=== PATIENT | male | born 1960 | race Caucasian/White ===

== ENCOUNTER → 2024-11-18 09:38 | Outpatient (REF) | payer MEDICARE, OTHER, SELFPAY | LOC: RCS 09:38 | PROVIDERS: ATTENDING PHYSICIAN Internal Medicine Interventional Cardiology; FAMILY PHYSICIAN Student in an Organized Health Care Education/Training Program | DX: I25.2 Old myocardial infarction (principal) | CPT/HCPCS: 93306 ==

== ENCOUNTER 2025-01-11 19:03 | Emergency (ER) | payer MEDICARE, OTHER, SELFPAY ==
[2025-01-11 19:04] VITALS: BP 154/92
[2025-01-11 20:09] LABS: Hematocrit 40.7 % (39.0-52.0); Hemoglobin 13.1 g/dL (13.0-18.0); Mean Corp Hgb Conc. 32.2 g/dL (33.0-37.0); Mean Corpuscular Volume 83.2 fL (80.0-94.0); Nucleated Red Blood Cells % 0 % (-); Platelet Count 208 10^3/uL (130-400); Red Cell Dist. Width 14.4 % (11.5-14.5)
[2025-01-11 20:35] LABS: ALT (SGPT) 26 U/L (0-50); AST (SGOT) 25 U/L (17-59); Albumin 4.6 g/dl (3.5-5.0); Alkaline Phosphatase 53 U/L (38-126); Blood Urea Nitrogen 23 mg/dl (9-20); Calcium 9.6 mg/dl (8.4-10.2); Carbon Dioxide 26 mmol/L (22-30); Chloride 107 mmol/L (98-107); Glucose 139 mg/dl (70-99); Potassium 4.7 mmol/L (3.5-5.1); Sodium 142 mmol/L (135-145); Total Protein 7.7 g/dl (6.3-8.2); eGFR > 60.00
[2025-01-11 20:46] LABS: Troponin I < 0.012 ng/ml
[2025-01-11 21:07] VITALS: BMI 31.7
[2025-01-11 21:09] VITALS: BP 144/85
[2025-01-11 23:19] VITALS: BP 142/85
[2025-01-11 23:30] VITALS: BP 139/89
--- NOTE | 2025-01-12 01:05 | ED.GENMED ---
History of Present Illness
General
Chief Complaint: Chest Pain
Source: patient and spouse
Time Seen by Provider: 01/11/25 21:15
Nursing documentation reviewed up to this point in time: agreed with
History of Present Illness
History of Present Illness:
Note:
CHIEF COMPLAINT(S)
Back pain with associated chest discomfort.
HISTORY OF PRESENT ILLNESS
The patient is a 64-year-old male with a history of myocardial infarction in 2008. The patient reports that while exercising last Sunday, he experienced a sudden sensation in his back dikc to 'breaking a guitar spring,' which he attributes to
muscular strain. The discomfort extended to his chest area, described as pressure due to muscle stress. Despite initial improvement over the week, the patient decided to seek medical attention today due to persistent unease and inability to find
comfort in his back. Today, the patient experienced an unfamiliar high blood pressure reading of 179/90, which prompted concern given he had never recorded such levels before. There was no associated shortness of breath, and the patient denies
current chest pain, describing discomfort instead below the shoulder blade, affecting his ribs. The patient relates the discomfort to muscle tension as per previous advice from his polisher numeral, Dr. Gibson.
SOCIAL DETERMINANTS AFFECTING HEALTH
The patient communicated a high level of concern due to his recent high blood pressure readings, which could reflect stress or anxiety impacting his health.
REVIEW OF SYSTEMS
- Musculoskeletal: Back pain that extends to the shoulder blade and ribs.
- Cardiovascular: History of myocardial infarction, current concern for blood pressure.
- Respiratory: No shortness of breath reported.
PHYSICAL EXAM
General: Alert, no acute distress.
Skin: Warm, dry.
Head: Normocephalic, atraumatic.
Neck: Supple, trachea midline.
Eyes, ears, nose, mouth, and throat: Oral mucosa moist.
Cardiovascular: Normal peripheral perfusion, No edema.
Respiratory: Respirations are non-labored.
Gastrointestinal: Abdomen nondistended
Back: Normal range of motion, Normal alignment.
Musculoskeletal: Normal ROM, normal strength.
Neurological: Alert and oriented to person, place, time, and situation, No focal neurological deficit observed.
Psychiatric: Cooperative, appropriate mood & affect.
PROBLEM LIST
Acute:
- Musculoskeletal back pain with extension to the chest.
- Elevated blood pressure reading after physical activity.
CHRONIC MEDICAL CONDITIONS SIGNIFICANTLY AFFECTING CARE
- History of myocardial infarction in 2008.
PLAN
- The plan includes performing a D-dimer test to assess for potential thromboembolic events (blood clot).
DIFFERENTIAL DIAGNOSIS
The Differential Diagnosis includes, in no particular order and is not limited to:
1. Musculoskeletal strain or sprain
2. Angina pectoris
3. Myocardial ischemia
4. Aortic dissection
5. Pulmonary embolism
6. Costochondritis
7. Gastroesophageal reflux disease (GERD)
8. Pericarditis
9. Pleural effusion
10. Pleuritis
EKG
My independent EKG interpretation is:
- Time of EKG: Not provided
- Rhythm: Not explicitly mentioned, but a normal rate may suggest a sinus rhythm
- Heart Rate: 70 beats per minute
- IA Interval: 214 ms, indicating a first-degree AV block
- QRS Duration: Not provided
- QT Interval: Not provided
- Platina: Not provided
- ST Segment Changes: Changes in lead aVF
- T Wave Inversions: Not explicitly mentioned
- Arrhythmias: Not explicitly mentioned
- Notable Finding: STT changes in aVF previously documented, unchanged since 2013
CARE-UPDATE
01/12/25 - 01:06
CT scan results indicate no evidence of pulmonary embolism.
Disposition:
SUMMARY OF ENCOUNTER
The patient, a 64-year-old male, presented to the emergency department with chest discomfort extending over the past week. Despite being attributed to muscle strain initially, a comprehensive evaluation was undertaken given the patients history of
myocardial infarction. A CT scan of the chest was performed and showed no evidence of pulmonary embolism. Cardiac enzymes were negative, ruling out acute coronary syndrome, and an EKG demonstrated unchanged results from previous evaluations.
Considering these findings, the patient was determined to be stable for discharge.
DISPOSITION
Discharge.
PLAN
The patient is advised to follow up with Dr. Gibson, his polisher numeral, for ongoing management of his cardiovascular health.
INDEPENDENT REVIEW OF LABS AND INTERPRETATION OF TESTS
- My independent review of the CT scan of the chest indicates no evidence of pulmonary embolism.
- My independent review of cardiac enzymes is negative, showing no indication of an acute coronary event.
- My independent EKG interpretation is unchanged from previous results, particularly with no new ischemic changes.
MEDICAL DECISION MAKING
- Number and Complexity of Problems Addressed: Chronic conditions affecting care include the patients history of myocardial infarction. Differential diagnosis considered: musculoskeletal strain or sprain, angina pectoris, myocardial ischemia, aortic
dissection, pulmonary embolism, costochondritis, gastroesophageal reflux disease (GERD), pericarditis, pleural effusion, pleuritis.
- Data:
Category 1:
- My independent interpretation of the CT scan and EKG as described.
- Review of cardiac enzymes, confirming negative results.
Category 3:
- Discussion of management was implied with the patients assurance to follow up with his polisher numeral, Dr. Gibson.
- Risk: Consideration of Admission/Observation: Escalation of care including admission/observation was considered given the complexity and risk of the patients presenting complaint, exam findings, and their underlying comorbidities. However,
ultimately, I feel the patient is safe for outpatient management with close follow-up. Reasoning: Work-up reassuring, does not reveal any acute life-threatening processes, patients symptoms well controlled upon reevaluation, reexamination is
reassuring, vitals are stable, patient agreeable with discharge, reliable for follow-up.
DIAGNOSIS
- Musculoskeletal chest pain, ICD-10 Code: M54.6
- Essential hypertension, ICD-10 Code: I10
- History of myocardial infarction, ICD-10 Code: I25.2
Past History
Past History
ED Past Medical History: CAD, HTN, Hypercholesterolemia and Other (migraine, anxiety, depression)
ED Past Surgical History: Cardiac (Cardiac stent) and Orthopedic (right hip replacement)
Social History
Tobacco: Non-smoker
Alcohol: Occasional
Drug: None
Personal:
Living: with family
Employment: Employed
Phy Exam
Physical Exam
Physical Exam:
.
Scores
Heart Score for Chest Pain Patients
STEMI patient?: No
History: Slightly or Non-Suspicious
ECG: Normal
Age: >/= 65 years
Risk Factors: 1 or 2 Risk Factors
Troponin: </= Normal Limit
Heart Score for Chest Pain Patients: 3
Heart Score Risk: 2.5% MACE over next 6 weeks
Course
Orders/Labs/Results
Orders:
Orders
01/11/25 19:04
Electrocardiogram (*1) Urgent
Reason for Study: Other
Other Reason for Exam: Respiratory Distress
Cardiac Monitoring- Treatment ONCE
EKG- Treatment ONCE
IV Insert/Care/Rem.- Treatment PRN
CR Chest - 2 Views Urgent
Comment:
Reason For Exam: respiratory distress
O2 Therapy [RESP] Urgent
Titrate/Wean O2 to maintain O2 sat greater than (%): 93
Special Instructions: TO MAINTAIN CONTINUOUS O2 SATS >/= 93%
Pulse Ox/cont/shift [RESP] Urgent
Quantity: 1
Special Instructions: continuous pulse ox
01/11/25 19:57
Complete Blood Count/With Diff Urgent
Comprehensive Metabolic Panel Urgent
NT-proBNP Urgent
Troponin I Urgent
01/11/25 23:22
CT Chest PE Study Urgent
Comment:
Reason For Exam: cp, left chest pain
01/12/25 00:56
Electrocardiogram (*1) Urgent
Reason for Study: Chest Pain
EKG- Treatment ONCE
01/12/25 01:11
Troponin I Urgent
Abnormal Lab Results
01/11/25
19:57
WBC 11.7 H 10^3/uL
(4.8-10.8)
MCH 26.8 L pg
(27.0-31.0)
MCHC 32.2 L g/dL
(33.0-37.0)
Abs Immat Gran (auto) 0.1 H 10^3/uL
(0-0.05)
Absolute Neuts (auto) 6.9 H 10^3/uL
(1.4-6.5)
Absolute Monos (auto) 1.1 H 10^3/uL
(0.1-0.6)
Immature Gran % 0.8 H %
(0-0.5)
Monocytes % 9.4 H %
(1.7-9.3)
BUN 23 H mg/dl
(9-20)
Glucose 139 H mg/dl
(70-99)
01/11/25 19:57
01/11/25 19:57
Vital Signs
Initial and Last Documented VS:
Initial Vital Signs
Temp Pulse Resp BP Pulse Ox
98.2 F 81 19 154/92 97
01/11/25 19:04 01/11/25 19:04 01/11/25 19:04 01/11/25 19:04 01/11/25 19:04
Last Documented Vital Signs
Temp Pulse Resp BP Pulse Ox
98.2 F 71 18 138/88 94
01/11/25 19:04 01/12/25 01:15 01/12/25 01:15 01/12/25 01:13 01/12/25 01:15
*Radiology
Radiology exam reviewed: radiology read reviewed
*Pulse Oximetry
SaO2: 95
Patient hypoxic: no
*Critical Care Note
Total Time (30-74mins, 75-104mins- exclusive of procedures): Not Applicable
Update Note
Update Note:
NAME: DAVID GARCIA
DATE OF EXAM: 01/11/2025
Patient No: [id number]
Physician: FAVIO
Date of : 1960
Past Medical History (entered by Technologist):
Reason For Exam (entered by Technologist):
Other Notes (entered by Technologist): Pt here for back pain on and off for a week, had an echo recently that was normal.
Prior sent
Additional Information (per [facility] Radiologist): Back pain on again off again for a week
CTA chest PE
Comparison: 10/06/2013
IMPRESSION:
sufficient contrast opacification of the pulmonary arteries
No evidence for pulmonary embolus
No appreciable acute thoracic aortic pathology on this non-ECG gated exam
Coronary artery calcifications
Normal size heart
Pericardium appears within normal limits
Lungs clear. No evidence for pneumonia or pulmonary edema
No pleural effusion or pneumothorax
Small sliding hiatal hernia
Case finalized on 01/12/25 00:08 EST
Ramy Hinson M.D.
This report has been electronically signed and verified by the Radiologist whose name is printed abov
ED Attending Note
-
Portions of this chart may have been created with voice recognition software.� Occasional wrong word or��sound alike� substitutions may have occurred due to the inherent limitations of voice recognition software.
Discharge Plan
Departure
Patient Disposition: Home (Routine Discharge)
Date of Disposition: 01/12/25
Time of Disposition: 01:53
Patient with high blood pressure during this ER visit?: Yes
Condition: Good
Discharge Problem:
Chest pain
Instructions: Chest Pain DCA Follow Up, BLOOD PRESSURE
Prescriptions:
No Action
carvedilol 12.5 MG tablet
12.5 mg PO BID
lisinopril 20 MG tablet
20 mg PO HS
rosuvastatin [Crestor] 40 MG tablet
40 mg PO HS Qty: 0
melatonin 2.5 MG tablet,chewable
5 mg PO HSPRN PRN (Reason: insomnia) Qty: 0
acetaminophen [Tylenol Extra Strength] 500 MG tablet
1,000 mg PO Q6HPRN PRN (Reason: pain)
ibuprofen 200 MG tablet
600 mg PO PRN PRN (Reason: pain)
glipizide 5 MG tablet
5 mg PO HS
amlodipine 5 MG tablet
5 mg PO DAILY
aspirin 81 MG tablet,chewable
81 mg PO DAILY
sitagliptin phos-metformin [Janumet] 1 EACH tablet
1 ea PO DAILY
meloxicam submicronized 10 MG capsule
10 mg PO DAILY
Referrals:
Tariq Lynn MD [Family Provider, Family Practice]
Activity Restrictions/Additional Instructions:
Thank You for choosing [facility].
It was a pleasure meeting you and taking part in your care. We hope for your continued healing and wellness.
Please read discharge instructions in their entirety. However, they are for general education and may not describe your exact diagnosis at discharge. Information on your ER visit and medical conditions were discussed with you along with appropriate
follow up information...
If indicated, please take your medications as instructed and indicated on discharge paperwork.
Please schedule a follow up appointment as directed. Call to schedule an appointment
Please return to the emergency department with ANY change in, persisting, or worsening of symptoms. If any of your symptoms do not improve, or persist, or become more severe within 6-12 hours, please return to the emergency department for further
care.
Please return to the emergency department if you develop a headache, neck pain/stiffness, fever greater than 100.4F, chest pain, shortness of breath, persistent nausea, vomiting, slurred speech, difficulty walking, numbness/tingling, weakness, signs
of infection or any other symptoms that are worrisome to you.
If you have any questions or concerns please do not hesitate to call the Hospital at .
Interventions
Interventions:
*Risk Screen - Suicide Last Done: 01/11/25 19:06
*General Assessment Last Done: 01/11/25 19:06
*Neglect/Abuse Screening Last Done: 01/11/25 19:06
*ED- Fall Risk Assessment Last Done: 01/12/25 03:07
*ED COVID-19 Vaccine History Last Done: 01/11/25 19:06
*ED Influenza Vaccine History Last Done: 01/11/25 19:06
*Nursing Disposition Last Done: 01/12/25 03:07
ED- Cardiac Assessment Last Done: 01/11/25 21:10
Discharge Date and Time
Discharge Date/Time: 01/12/25 03:08
Print Language: MALTESE
[2025-01-12 01:13] VITALS: BP 138/88
[2025-01-12 02:35] LABS: Troponin I < 0.012 ng/ml
== END 2025-01-12 03:08 | disposition home or self-care (01) ==
LOC: EMR 19:03
PROVIDERS: Emergency Medicine; EMERGENCY PHYSICIAN Student in an Organized Health Care Education/Training Program; FAMILY PHYSICIAN Student in an Organized Health Care Education/Training Program
DX: R07.89 Other chest pain (principal); E78.00 Pure hypercholesterolemia, unspecified; I10 Essential (primary) hypertension; I25.10 Atherosclerotic heart disease of native coronary artery without angina pectoris; I25.2 Old myocardial infarction; Z95.5 Presence of coronary angioplasty implant and graft
CPT/HCPCS: 99285; 71046; 71275; 80053; 83880; 84484; 85025; 93005; Q9967

== ENCOUNTER → 2025-01-15 12:38 | Outpatient (REF) | payer MEDICARE, OTHER, SELFPAY | LOC: PAVMRI 12:38 | PROVIDERS: ATTENDING PHYSICIAN Student in an Organized Health Care Education/Training Program | DX: K86.89 Other specified diseases of pancreas (principal) | CPT/HCPCS: 74183; A9575 ==

== ENCOUNTER 2025-02-02 06:24 | Day surgery (SDC) | payer MEDICARE, OTHER, SELFPAY ==
[2025-02-02 10:52] LABS: Glucose - Point of Care 117 mg/dl (70-99)
== END 2025-02-02 12:09 | disposition home or self-care (01) ==
LOC: GI 06:24
PROVIDERS: ATTENDING PHYSICIAN Internal Medicine Gastroenterology
DX: R10.10 Upper abdominal pain, unspecified (principal); R93.3 Abnormal findings on diagnostic imaging of other parts of digestive tract; K29.70 Gastritis, unspecified, without bleeding; K29.80 Duodenitis without bleeding; K31.89 Other diseases of stomach and duodenum
CPT/HCPCS: 43239; 82962; 88305; 88342